=== PATIENT | female | born 1945 | race Caucasian/White ===

== ENCOUNTER 2017-01-16 15:11 | Emergency (ER) | payer MEDICARE, OTHER ==
[~2017-01-16] VITALS: Ht 157.5 cm; Wt 93.4 kg
[~2017-01-16 15:11] MED LIST: ANTIVERT25 MG PO; CARAFATE1 GM/10 ML PO; CHLORTHALIDONE25 MG PO; CITALOPRAM HBR20 MG PO; CLONAZEPAM0.5 M1 PO; COZAAR25 MG PO; LEVOTHYROXINE25 MCG PO; PROTONIX40 MG PO; RANITIDINE HCL150 MG PO; TRAMADOL HCL50 MG PO; VALIUM5 MG PO; VICODIN 5-3001 EACH PO; ZOFRAN ODT4 MG SL; ZOFRAN4 MG PO
[2017-01-16] MEDS ORDERED: AMBIEN5 MG PO (15:25)
== END 2017-01-16 16:48 | disposition home or self-care (01) ==
LOC: ED 15:11
DX: S06.0X1A Concussion with loss of consciousness of 30 minutes or less, initial encounter (principal); E03.9 Hypothyroidism, unspecified; I10 Essential (primary) hypertension; F32.9 Major depressive disorder, single episode, unspecified; Z90.710 Acquired absence of both cervix and uterus; Z88.8 Allergy status to other drugs, medicaments and biological substances; Z79.899 Other long term (current) drug therapy; W19.XXXA Unspecified fall, initial encounter
CPT/HCPCS: 70450; 80053; 85025; 96361; 96374; 99284; J2060; J7040

== ENCOUNTER 2017-10-20 16:04 | Emergency (ER) | payer MEDICARE, OTHER ==
[~2017-10-20] VITALS: Ht 157.5 cm; Wt 93.4 kg
[~2017-10-20 16:04] MED LIST changes: +AMBIEN5 MG PO; +PREDNISONE20 MG PO; +VENTOLIN HFA18 GM INH
[2017-10-20] MEDS ORDERED: LIDODERM1 EACH TOP (19:24)
--- NOTE | 2017-10-20 19:59 | EKG ---
[facility] [address] [place] [address] Signed Normal sinus rhythm Upsloping of the V1 chest lead noted. Suggest right sided chest leads to assess for posterior involvement. Borderline ECG When compared with ECG of 20-SEP-2017 12:20,, the upsloping seems more prominent. Confirmed by MARGARET MENDIOLA MD ([id number]) on 10/20/2017 7:59:24 PM Electronically Signed By: MARGARET MENDIOLA MD 10/20/17 1959 PATIENT NAME: HUE SALAS Electrocardiogram DATE OF : 47 PHYSICIAN: MARGARET MENDIOLA MD REPORT #: [id number] REPORT IS CONFIDENTIAL AND NOT TO BE RELEASED WITHOUT AUTHORIZATION
--- NOTE | 2017-10-20 20:02 | EKG ---
[facility] [address] [place] [address] Signed Sinus bradycardia Upsloping noted in V1. Similar to the earlier from 16:[address] segments are more flattened in V3 to V5 in comparison to the EKG from 16:08. Otherwise normal ECG Confirmed by MARGARET MENDIOLA MD ([id number]) on 10/20/2017 8:02:04 PM Electronically Signed By: MARGARET MENDIOLA MD 10/20/172001 PATIENT NAME: HUE SALAS Electrocardiogram DATE OF : 47 PHYSICIAN: MARGARET MENDIOLA MD REPORT #: [id number] REPORT IS CONFIDENTIAL AND NOT TO BE RELEASED WITHOUT AUTHORIZATION
--- NOTE | 2017-10-20 20:25 | EKG ---
[facility] [address] [place] [address] Signed Normal sinus rhythm Normal ECG No significant change was found in the right sided chest leads. When compared with ECG of 20-OCT-2017 19:31, No significant change was found Confirmed by MARGARET MENDIOLA MD ([id number]) on 10/20/2017 8:24:47 PM Electronically Signed By: MARGARET MENDIOLA MD 10/20/17 2025 PATIENT NAME: SALAS,HUEMala MASSEY Electrocardiogram DATE OF : 47 PHYSICIAN: MARGARET MENDIOLA MD REPORT #: [id number] REPORT IS CONFIDENTIAL AND NOT TO BE RELEASED WITHOUT AUTHORIZATION
== END 2017-10-20 21:16 | disposition short-term general hospital (02) ==
LOC: ED 16:04
DX: R07.89 Other chest pain (principal); R06.02 Shortness of breath; I10 Essential (primary) hypertension; E03.9 Hypothyroidism, unspecified; F32.9 Major depressive disorder, single episode, unspecified; Z88.8 Allergy status to other drugs, medicaments and biological substances; Z79.899 Other long term (current) drug therapy
CPT/HCPCS: 71045; 80053; 83880; 84484; 85025; 85379; 85610; 85730; 93005; 93010; 96372; 96374; 99285; J1650; J3010; J7040

== ENCOUNTER 2021-03-11 22:14 | Emergency (ER) | payer MEDICARE ==
[~2021-03-11] VITALS: Ht 157.5 cm; Wt 90.7 kg
[~2021-03-11 22:14] MED LIST changes: +LIDODERM1 EACH TOP
--- OUTSIDE RECORDS SUMMARY | 2021-03-11 22:16 | XMS ---
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 Bailey has no Care Guidelines for this patient. Thuy VISIT COUNT (12 MO.) 1 [facility] TOTAL 1 NOTE: Visits indicate total known visits. ED/UCC VISIT TRACKING (12 MO.) 03/11/2021 22:15 [facility] [place] TYPE: Emergency COMPLAINT: - AND PAIN, BODY ACHES, DIARRHEA INPATIENT VISIT TRACKING (12 MO.) No inpatient visits to display in this time frame [email or web address]
[2021-03-11] MEDS ORDERED: CLONAZEPAM0.5 MG PO (23:17)
[2021-03-11] MEDS ORDERED: TOPROL XL50 MG PO (23:18)
[2021-03-12] MEDS ORDERED: FLAGYL500 MG PO (01:29)
[2021-03-12] MEDS ORDERED: CIPRO500 MG PO (01:29)
[2021-03-12] MEDS ORDERED: ZOFRAN4 MG PO (01:29)
[2021-03-12] MEDS ORDERED: HYDROCODON-ACE1 EA10 PO (01:29)
--- NOTE | 2021-03-12 17:34 | EKG ---
[facility] [address] [facility] [place] [address] Signed Sinus bradycardia Incomplete left bundle branch block Nonspecific T wave abnormality Abnormal ECG When compared with ECG of 20-OCT-2017 20:08, No significant change was found Confirmed by MICHELLE CHANEL DO ([id number]) on 03/12/2021 5:33:55 PM Electronically Signed By: MICHELLE CHANEL DO 03/12/21 1734 PATIENT NAME: HUE SALAS Electrocardiogram DATE OF : 47 PHYSICIAN: MICHELLE CHANEL DO REPORT #: [id number] REPORT IS CONFIDENTIAL AND NOT TO BE RELEASED WITHOUT AUTHORIZATION
== END 2021-03-12 02:11 | disposition home or self-care (01) ==
LOC: ED 22:14
DX: K57.32 Diverticulitis of large intestine without perforation or abscess without bleeding (principal); I10 Essential (primary) hypertension; E03.9 Hypothyroidism, unspecified; Z20.822 Contact with and (suspected) exposure to COVID-19; Z88.8 Allergy status to other drugs, medicaments and biological substances; Z79.899 Other long term (current) drug therapy
CPT/HCPCS: 71045; 74176; 80053; 81001; 83690; 83735; 85025; 93005; 93010; 96374; 99284-25; C9803; J2405; J7030; U0003

== ENCOUNTER 2021-10-09 09:02 | Emergency (ER) | payer MEDICARE ==
[~2021-10-09] VITALS: Ht 157.5 cm; Wt 93.9 kg
[~2021-10-09 09:02] MED LIST changes: +CIPRO500 MG PO; +CLONAZEPAM0.5 MG PO; +FLAGYL500 MG PO; +HYDROCODON-ACE1 EA10 PO; +TOPROL XL50 MG PO
--- OUTSIDE RECORDS SUMMARY | 2021-10-09 09:06 | XMS ---
PreManage Notification: HUE SALAS Security Purchasing/Receiving Events No recent Security Events currently on file CRITERIA MET - [facility] CARE PROVIDERS NICK SOLIS Physician General Repairer 03/13/2021-Current PHONE: Unknown Bailey has no Care Guidelines for this patient. Thuy VISIT COUNT (12 MO.) 2 S[facility] Yo TOTAL 2 NOTE: Visits indicate total known visits. ED/UCC VISIT TRACKING (12 MO.) 10/09/2021 09:03 [facility] [place] TYPE: Emergency COMPLAINT: - ABDOMINAL PAIN, N/V 03/11/2021 22:15 [facility] [place] TYPE: Emergency COMPLAINT: - AND PAIN, BODY ACHES, DIARRHEA DIAGNOSES: - Other intermediate (current) drug therapy - Essential (primary) hypertension - Allergy status to other drugs, medicaments and biological substances - Diverticulitis of large intestine without perforation or abscess without bleeding - Unspecified abdominal pain - Hypothyroidism, unspecified INPATIENT VISIT TRACKING (12 MO.) No inpatient visits to display in this time frame [email or web address]
[2021-10-09] MEDS ORDERED: PROZAC20 MG PO (09:54)
[2021-10-09] MEDS ORDERED: ONDANSETRON ODT8 MG PO (12:29)
[2021-10-09] MEDS ORDERED: FLOMAX0.4 MG PO (12:29)
[2021-10-09] MEDS ORDERED: HYDROCODON-ACE1 EA10 PO (12:29)
== END 2021-10-09 12:48 | disposition home or self-care (01) ==
LOC: ED 09:02
DX: N20.0 Calculus of kidney (principal); I10 Essential (primary) hypertension; E03.9 Hypothyroidism, unspecified; Z88.8 Allergy status to other drugs, medicaments and biological substances; Z79.899 Other long term (current) drug therapy
CPT/HCPCS: 36415; 74177; 80053; 81001; 83605; 83690; 85025; 96375; 99284-25; J2270; J2405; J7030; Q9967

== ENCOUNTER 2024-12-07 20:01 | Emergency (ER) | payer MEDICARE, OTHER ==
[~2024-12-07] VITALS: Ht 157.5 cm; Wt 107.0 kg
[~2024-12-07 20:01] MED LIST changes: +ACETAMINOPHEN500 MG PO; +ALPRAZOLAM0.5 MG PO; +AMLODIPINE BES2.5 MG PO; +CYMBALTA30 MG PO; +DICLOFENAC SODI75 MG PO; +DULOXETINE HCL60 MG PO; +FLOMAX0.4 MG PO; +IBU400 MG PO; +METOPROLOL SUCC25 MG PO; +ONDANSETRON ODT8 MG PO; +OSTERA TABLET1 EACH PO; +OXYCODONE HCL5 MG PO; +PROZAC20 MG PO; +SENNA LAX8.6 MG PO; +XANAX1 MG PO; +XARELTO10 MG PO
[2024-12-07 20:14] LABS: BASOPHILS 1.4 % (0.1-1.2); HEMATOCRIT 40.6 % (34.1-44.9); HEMOGLOBIN 13.8 g/dL (11.2-15.7); LYMPHOCYTES 19.6 % (19.3-51.7); MCH 32.2 PG (25.6-32.2); MCV 94.6 fL (79.4-94.8); MONOCYTES 6.3 % (4.7-12.5); NEUTROPHILS 68.6 % (34.0-71.1); PLATELET COUNT 147 K/uL (182-369); RBC 4.29 M/uL (3.93-5.22)
[2024-12-07] MEDS ORDERED: MORPHINE SULFATE 4 MG/ML VIAL IV ONE (20:15)
[2024-12-07] MEDS ORDERED: SODIUM CHLORIDE 0.9% 1,000 ML IV ONE (20:15)
[2024-12-07] MEDS ORDERED: ondansetron HCL 4 MG/2 ML VIAL IV ONE (20:15)
[2024-12-07 20:30] LABS: ALBUMIN 3.8 g/dL (3.4-5.0); ALBUMIN/GLOBULIN RATIO 1.15 (1.1-2.4); ANION GAP 14.9 (7-21); BILIRUBIN, TOTAL 0.3 mg/dL (0.2-1.0); BUN/CREATININE RATIO 26.08 (6.0-28.6); CALCIUM 9.5 mg/dL (8.5-10.1); CREATININE, SERUM 1.38 mg/dL (0.55-1.02); POTASSIUM 3.9 mmol/L (3.5-5.1); PROTEIN, TOTAL 7.1 g/dL (6.4-8.2)
[2024-12-07 20:38] LABS: BILIRUBIN, URINE NEGATIVE (negative); BLOOD/HGB, URINE TRACE-I (Negative); KETONE, URINE NEGATIVE (Negative); LEUK ESTERASE, URINE TRACE (negative); NITRITE, URINE NEGATIVE (negative)
[2024-12-07 20:45] LABS: CRYSTALS, URINE NONE SEEN (0-1+); EPITHELIAL CELLS, URINE SQUAMOUS 1+ /lpf (0-1+); WHITE BLOOD CELLS, URINE 41-50 /HPF (0-5)
[2024-12-07 20:46] LABS: BACTERIA, URINE RARE /hpf (negative); CASTS, URINE NONE SEEN \\lpf; COLLECTION TYPE, URINE CLEAN CATCH; REFLEX CULTURE, URINE Yes (No)
[2024-12-07] MEDS ORDERED: LIDOCAINE 2% VISCOUS 6 ML SYR TOP ONE (21:30)
[2024-12-07] MEDS ORDERED: PERCOCET 5-3251 EACH PO (21:41)
[2024-12-07] MEDS ORDERED: ONDANSETRON ODT8 MG PO (21:41)
[2024-12-07] MEDS ORDERED: CEFDINIR300 MG PO (21:41)
[2024-12-07] MEDS ORDERED: CEFDINIR 300 MG HOME.PACK PO ONE (21:45)
[2024-12-07] MEDS ORDERED: TAMSULOSIN HCL 0.4 MG CAP PO ONE (21:45)
[2024-12-07] MEDS ORDERED: ONDANSETRON 4 MG HOME.PACK SL ONE (21:45)
[2024-12-07] MEDS ORDERED: OXYCODONE/ACETAMINOPHEN 1 TAB HOME.PACK PO ONE (21:45)
[2024-12-07 22:06] VITALS: BP 170/89
== END 2024-12-07 22:07 | disposition home or self-care (01) ==
LOC: ED 20:01
PROVIDERS: Family Medicine
DX: N13.2 Hydronephrosis with renal and ureteral calculous obstruction (principal); K57.30 Diverticulosis of large intestine without perforation or abscess without bleeding; Z88.8 Allergy status to other drugs, medicaments and biological substances; Z79.01 Long term (current) use of anticoagulants; Z79.899 Other long term (current) drug therapy
CPT/HCPCS: 36415; 51702; 74177; 80053; 81001; 83690; 85025; 87088; 99284-25; A9270; J2270; J2405; J7030; Q9967

== ENCOUNTER 2024-12-11 14:39 | Emergency (ER) | payer MEDICARE, OTHER ==
[~2024-12-11] VITALS: Ht 157.5 cm; Wt 100.0 kg
[~2024-12-11 14:39] MED LIST changes: +CEFDINIR300 MG PO; +PERCOCET 5-3251 EACH PO
--- OUTSIDE RECORDS SUMMARY | 2024-12-11 14:46 | XMS ---
PreManage Notification: HUE SALAS Security [employer] Supervisor Events No recent Security Events currently on file CRITERIA MET - [facility] - 2 Visits in 30 Days CARE PROVIDERS NICK SOLIS I. 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 Thuy VISIT COUNT (12 MO.) 2 [facility] TOTAL 2 NOTE: Visits indicate total known visits. ED/UCC VISIT TRACKING (12 MO.) 12/11/2024 14:40 [facility] [place] TYPE: Emergency COMPLAINT: - SOB, PAIN 12/07/2024 20:01 [facility] [place] TYPE: Emergency COMPLAINT: - ABDOM PAIN DIAGNOSES: - Allergy status to other drugs, medicaments and biological substances - Diverticulosis of large intestine without perforation or abscess without bleeding - Hydronephrosis with renal and ureteral calculous obstruction - senior living (current) use of anticoagulants - Other snf (current) drug therapy - Right upper quadrant pain INPATIENT VISIT TRACKING (12 MO.) No inpatient visits to display in this time frame [email or web address]
[2024-12-11] MEDS ORDERED: MORPHINE SULFATE 4 MG/ML VIAL IV ONE (15:15)
[2024-12-11] MEDS ORDERED: ondansetron HCL 4 MG/2 ML VIAL IV ONE (15:15)
[2024-12-11 15:19] LABS: BASOPHILS 0.5 % (0.1-1.2); EOSINOPHILS 0.2 % (0.7-5.8); HEMATOCRIT 39.2 % (34.1-44.9); HEMOGLOBIN 13.4 g/dL (11.2-15.7); LYMPHOCYTES 7.2 % (19.3-51.7); MCH 32.1 PG (25.6-32.2); MCHC 34.2 g/dL (32.2-35.5); NEUTROPHILS 84.7 % (34.0-71.1); PLATELET COUNT 125 K/uL (182-369); RBC 4.17 M/uL (3.93-5.22)
[2024-12-11 15:35] LABS: ALBUMIN 3.6 g/dL (3.4-5.0); ALBUMIN/GLOBULIN RATIO 0.97 (1.1-2.4); ANION GAP 14.2 (7-21); BUN/CREATININE RATIO 18.53 (6.0-28.6); CALCIUM 9.8 mg/dL (8.5-10.1); CREATININE, SERUM 2.05 mg/dL (0.55-1.02); POTASSIUM 4.2 mmol/L (3.5-5.1); PROTEIN, TOTAL 7.3 g/dL (6.4-8.2)
[2024-12-11] MEDS ORDERED: SODIUM CHLORIDE 0.9% 1,000 ML IV PRN (16:30)
[2024-12-11] MEDS ORDERED: CEFTRIAXONE SODIUM 2 GM in SODIUM CHLORIDE 0.9% 100 ML IV ONE (17:45)
[2024-12-11 18:23] VITALS: BP 140/97
== END 2024-12-11 18:23 | disposition short-term general hospital (02) ==
LOC: ED 14:39
PROVIDERS: Emergency Medicine
DX: N17.9 Acute kidney failure, unspecified (principal); N13.6 Pyonephrosis; I10 Essential (primary) hypertension; Z90.49 Acquired absence of other specified parts of digestive tract; Z97.11 Presence of artificial right arm (complete) (partial); Z88.8 Allergy status to other drugs, medicaments and biological substances
CPT/HCPCS: 74176; 80053; 83690; 85025; 96361; 96374; 96375; 99285-25; J0696; J2270; J2405; J7030